=== PATIENT | female | born 1965 | race Caucasian/White ===

== ENCOUNTER 2020-01-06 20:59 | Emergency (ER) | payer OTHER ==
[~2020-01-06] VITALS: Ht 152.4 cm; Wt 88.5 kg
[2020-01-06 20:59] VITALS: BP 128/75
--- NOTE | 2020-01-06 21:00 | NUR ---
PT CAME TO THE ED C/O L HAND LACERATION S/P CAT BITE. MINIMAL BLEEDING NOTED. TECH AT BEDSIDE FOR WOUND CARE. PT AAOX4, VSS, RESPIRATIONS EVEN AND UNLABORED ON RA W NAD NOTED. PT CONNECTED TO THE MONITOR AND POX
--- NOTE | 2020-01-06 22:22 | NUR ---
DR MONTANEZ AT BEDSIDE
[2020-01-06] MEDS ORDERED: HYDROCODONE/APAP 5/325MG 1 EACH TABLET ONE (22:28)
[2020-01-06] MEDS ORDERED: DOXYCYCLINE HYCLATE (100 MG) 100 MG TABLET ONE (22:28)
[2020-01-06] MEDS ORDERED: DOXYCYCLINE HYCLATE (100 MG) 100 MG TABLET PO ONE (22:30)
[2020-01-06] MEDS ORDERED: HYDROCODONE/APAP 5/325MG 1 EACH TABLET PO ONE (22:30)
--- NOTE | 2020-01-06 22:36 | NUR ---
Patient discharged to home in stable condition. Written and verbal after care instructions given. Patient verbalizes understanding of instruction.
== END 2020-01-06 22:36 | disposition home or self-care (01) ==
LOC: ER 20:59
DX: S61.412A Laceration without foreign body of left hand, initial encounter (principal); J45.909 Unspecified asthma, uncomplicated; Z88.0 Allergy status to penicillin; Z88.2 Allergy status to sulfonamides; W55.01XA Bitten by cat, initial encounter; Y93.89 Activity, other specified; Y92.89 Other specified places as the place of occurrence of the external cause; Y99.8 Other external cause status
CPT/HCPCS: 99283; A6403